=== PATIENT | female | born 1960 | race Caucasian/White ===

== ENCOUNTER 2017-05-19 14:29 | Emergency (ER) | payer OTHER ==
[~2017-05-19] VITALS: Ht 165.1 cm; Wt 65.8 kg
[2017-05-19 16:16] VITALS: BP 134/96
== END 2017-05-19 16:51 | disposition home or self-care (01) ==
LOC: ED 14:29
DX: S83.92XA Sprain of unspecified site of left knee, initial encounter (principal); I10 Essential (primary) hypertension; X50.1XXA Overexertion from prolonged static or awkward postures, initial encounter; Y93.89 Activity, other specified; Y99.8 Other external cause status; Y92.89 Other specified places as the place of occurrence of the external cause
CPT/HCPCS: Q0092

== ENCOUNTER 2020-08-21 23:02 | Emergency (ER) | payer OTHER, SELFPAY ==
[~2020-08-21] VITALS: Ht 165.1 cm; Wt 59.0 kg
[2020-08-21 23:05] VITALS: Ht 165.1 cm; Wt 59.0 kg
[2020-08-21 23:46] VITALS: BP 138/94
== END 2020-08-21 23:46 | disposition home or self-care (01) ==
LOC: ED 23:02
DX: R07.89 Other chest pain (principal); R05 Cough; R53.1 Weakness; Z20.828 Contact with and (suspected) exposure to other viral communicable diseases
CPT/HCPCS: U0003